=== PATIENT | male | born 1970 | race Caucasian/White ===

== ENCOUNTER 2020-01-20 17:17 | Emergency (ER) | payer BC ==
--- NOTE | 2020-01-20 18:15 | EDM.PDOC ---
ED HPI GENERAL MEDICAL PROBLEM - General Chief Complaint: Diabetic Complaint Stated Complaint: LOW BLOOD SUGAR Time Seen by Provider: 01/20/20 17:20 Source of Information: Reports: Patient, EMS History Limitations: Reports: No Limitations - History of Present Illness INITIAL COMMENTS - FREE TEXT/NARRATIVE: Tommy Thomas arrives by EMS following episode at [facility] when he appeared confused to staff. EMS summoned, determined initial BS 47 mg% and transport BS 51 mg% with administration of oral glucose soln. Upon arrival, confusion present, random BS 24 mg%, and an IV was inserted into LUE with amp of D50 w 1L of NS, and improvement in sensorium within 10 minutes. Current BS 152 mg% and he is a Type I DM since age 7. - Related Data Allergies Allergy/AdvReac Type Severity Reaction Status Date / Time No Known Allergies Allergy Verified 01/20/20 17:29 Home Meds: Home Meds Aspirin [Halfprin] 81 mg PO DAILY 01/20/20 [History] Insulin Glarg,Human.Rec.Analog [Lantus Solostar] 0 unit SUBCUT DAILY 01/20/20 [History] Insulin Lispro [Humalog] 10 unit SQ BIDMEALS 01/20/20 [History] Past Medical History HEENT History: Reports: Impaired Vision Cardiovascular History: Reports: High Cholesterol, Hypertension Respiratory History: Reports: None Gastrointestinal History: Reports: GERD Genitourinary History: Reports: None Neurological History: Reports: None Endocrine/Metabolic History: Reports: Diabetes, Type I Hematologic History: Reports: None Immunologic History: Reports: None Oncologic (Cancer) History: Reports: None Dermatologic History: Reports: None - Infectious Disease History Infectious Disease History: Reports: Chicken Pox, Influenza, Shingles - Past Surgical History HEENT Surgical History: Reports: None GI Surgical History: Reports: None Social & Family History - Family History Family Medical History: Noncontributory - Tobacco Use Smoking Status *Q: Never Smoker Second Hand Smoke Exposure: No - Caffeine Use Caffeine Use: Reports: Energy Drinks - Alcohol Use Days Per Week of Alcohol Use: 7 Number of Drinks Per Day: 3 Total Drinks Per Week: 21 - Recreational Drug Use Recreational Drug Use: No ED ROS GENERAL - Review of Systems Review Of Systems: Comprehensive ROS is negative, except as noted in HPI. ED EXAM GENERAL NO PERIP PULSE - Physical Exam Exam: See Below Exam Limited By: No Limitations General Appearance: Alert, WD/WN, No Apparent Distress Eye Exam: Bilateral Eye: EOMI, Normal Inspection, PERRL Ears: Normal External Exam Nose: Normal Inspection Throat/Mouth: Normal Inspection, Normal Lips, Normal Oropharynx, Normal Voice, No Airway Compromise Head: Normocephalic Neck: Normal Inspection, Supple, Non-Tender Respiratory/Chest: Lungs Clear Cardiovascular: Regular Rate, Rhythm, No Murmur GI/Abdominal: Soft, Non-Tender, No Organomegaly, No Distention, No Mass (Male) Exam: Deferred Rectal (Males) Exam: Deferred Back Exam: Normal Inspection Extremities: Normal Inspection Neurological: Alert, Oriented, CN II-XII Intact, Normal Gait, No Motor/Sensory Deficits Psychiatric: Normal Affect, Normal Mood Skin Exam: Warm, Dry, Intact Lymphatic: No Adenopathy Course - Vital Signs Text/Narrative:: Tommy remained stable at the ED, and was discharged in stable condition after eating dinner. Last Recorded V/S: Last Vital Signs Temp Pulse 74 01/20/20 17:25 Resp 26 H 01/20/20 17:25 BP 159/65 H 01/20/20 17:25 Pulse Ox 100 01/20/20 17:25 - Orders/Labs/Meds Orders: Active Orders 24 hr Category Date Time Status Accu Check [Blood Glucose Check, Bedside] [RC] ONETIME Care 01/20/20 17:22 Active Accu Check [Blood Glucose Check, Bedside] [RC] ONETIME Care 01/20/20 18:00 Active Labs: Laboratory Tests 01/20/20 01/20/20 Range/Units 17:23 18:00 POC Glucose 24 L* 152 H D (80-116) mg/dL Departure - Departure Time of Disposition: 19:20 Disposition: Home, Self-Care 01 Condition: Good Clinical Impression: Hypoglycemia - Discharge Information *PRESCRIPTION DRUG MONITORING PROGRAM REVIEWED*: Not Applicable *COPY OF PRESCRIPTION DRUG MONITORING REPORT IN PATIENT [place]: Not Applicable Forms: ED Department Discharge Sepsis Event Note (ED) - Evaluation Sepsis Screening Result: No Definite Risk - Focused Exam Vital Signs: Vital Signs Pulse Resp BP Pulse Ox 01/20/20 17:25 74 26 H 159/65 H 100 - Problem List & Annotations (1) Type I diabetes mellitus SNOMED Code(s): 84137245 Code(s): E10.9 - TYPE 1 DIABETES MELLITUS WITHOUT COMPLICATIONS Status: Acute Current Visit: Yes Annotation/Comment:: Follow up with spreader in [place]. (2) Hypoglycemia SNOMED Code(s): 846669025 Code(s): E16.2 - HYPOGLYCEMIA, UNSPECIFIED Status: Acute Current Visit: Yes Annotation/Comment:: Routine hypoglycemic precautions including glocose tabs, access to hard candy, or injectible glucagon IM. - Problem List Review Problem List Initiated/Reviewed/Updated: Yes - My Orders Last 24 Hours: My Active Orders 01/20/20 17:22 Accu Check [Blood Glucose Check, Bedside] [RC] ONETIME 01/20/20 18:00 Accu Check [Blood Glucose Check, Bedside] [RC] ONETIME - Assessment/Plan Last 24 Hours: My Active Orders 01/20/20 17:22 Accu Check [Blood Glucose Check, Bedside] [RC] ONETIME 01/20/20 18:00 Accu Check [Blood Glucose Check, Bedside] [RC] ONETIME Plan: Follow up with PCP or spreader. No driving today.
[2020-01-20] MEDS ORDERED: Dextrose 5% in Water 500 ML IV ONE (19:45)
== END 2020-01-20 20:20 | disposition home or self-care (01) ==
LOC: FB.ED 17:17
DX: E10.649 Type 1 diabetes mellitus with hypoglycemia without coma (principal); I10 Essential (primary) hypertension; Z79.82 Long term (current) use of aspirin
CPT/HCPCS: 82962; 99285; J7060